=== PATIENT | female | born 1985 | race Caucasian/White ===

== ENCOUNTER 2024-04-12 13:00 | Emergency (ER) | payer OTHER ==
[~2024-04-12] VITALS: Ht 165.1 cm; Wt 61.0 kg
[2024-04-12 13:06] VITALS: O2SAT 99
[2024-04-12] MEDS: ONDANSETRON 4MG ODT PO ONE (13:30)
[2024-04-12 14:30] LABS: *AMPHETAMINES SCREEN URINE NEGATIVE (NEGATIVE); *BARBITURATES SCREEN URINE NEGATIVE (NEGATIVE); *BENZODIAZEPINES SCREEN URINE NEGATIVE (NEGATIVE); *COCAINE SCREEN URINE NEGATIVE (NEGATIVE); CANNABINOID URINE SCREEN NEGATIVE (NEGATIVE); ECSTASY MDMA SCREEN URINE NEGATIVE (NEGATIVE); METHADONE URINE SCREEN NEGATIVE (NEGATIVE); OPIATES URINE SCREEN PRESUMPTIVE POSITIVE (NEGATIVE); PHENCYCLIDINE URINE SCREEN NEGATIVE (NEGATIVE)
[2024-04-12 14:54] LABS: BASOPHILS % 0.1 % (0.0-2.0); EOSINOPHILS % 0.1 % (0.0-5.0); HEMATOCRIT. 38.5 % (36.0-48.0); HEMOGLOBIN. 12.7 g/dL (12.0-16.0); LYMPHOCYTES % 11.2 % (20.0-50.0); MEAN CORPUSCULAR HEMOGLOBIN 28.2 pg (28.0-32.0); MEAN CORPUSCULAR VOLUME 85.5 fL (81.0-99.0); MEAN PLATELET VOLUME 8.8 fl (7.4-10.4); NEUTROPHILS % 86.6 % (40.0-76.0); PLATELET 284 x1000/uL (130-400); RED BLOOD CELL COUNT 4.51 mill/uL (4.2-5.4); RED CELL DISTRIBUTION WIDTH 13.6 % (11.6-14.6); WHITE BLOOD COUNT 13.4 x1000/uL (4.5-11.0)
[2024-04-12 14:59] LABS: CHLORIDE 105 mEq/L (98-107); POTASSIUM 4.4 mEq/L (3.5-5.1); SODIUM 137 mEq/L (136-145)
[2024-04-12 15:00] LABS: CARBON DIOXIDE 29 mEq/L (21-32)
[2024-04-12] MEDS: SODIUM CHLORIDE 0.9% 1,000 ML IV ONE (15:00)
[2024-04-12 15:01] LABS: CALCIUM 9.8 mg/dL (8.7-10.4)
[2024-04-12 15:05] LABS: CREATININE 0.7 mg/dL (0.6-1.0); GLUCOSE 121 mg/dL (70-105); UREA NITROGEN BLOOD 10 mg/dL (9-23)
[2024-04-12 15:07] LABS: ACETAMINOPHEN < 2 ug/mL (10-30); ALANINE AMINOTRANSFERASE 38 IU/L (10-49); ALBUMIN 4.9 g/dL (3.2-4.8); ASPARTATE AMINOTRANSFERASE 33 IU/L (<34); BILIRUBIN DIRECT 0.2 mg/dL (<=3.0); BILIRUBIN TOTAL 0.4 mg/dL (0.1-1.0); PROTEIN TOTAL 7.9 g/dL (6.0-8.3)
[2024-04-12 15:08] LABS: HCG SCREEN NEGATIVE
[2024-04-12 15:09] LABS: ETHANOL BLOOD < 10 mg/dL (<10)
[2024-04-12] MEDS ORDERED: NALO4SPR BOTHNSTRLS (18:08)
[2024-04-12] MEDS ORDERED: OMEP20CA14 MT (18:08)
[2024-04-12] MEDS ORDERED: ONDA8TAB13 MT (18:08)
[2024-04-12 18:34] VITALS: BP 124/86; PULSE 81; RESP 20; TEMP 98.7
== END 2024-04-12 18:37 | disposition home or self-care (01) ==
LOC: ER 13:00
DX: T40.601A Poisoning by unspecified narcotics, accidental (unintentional), initial encounter (principal); R10.13 Epigastric pain; R42 Dizziness and giddiness; Y92.89 Other specified places as the place of occurrence of the external cause
CPT/HCPCS: 80076; 80305; 80048; 81025; 80307; 80329; 80320; 84703; 83690; 85025; 36415; 76705; 93005; 96360; 96361; 99284; Q0162; J7030; G0480